=== PATIENT | male | born 1975 | race African-American/Black ===

== ENCOUNTER 2019-04-06 14:04 | Emergency (ER) | payer SELFPAY ==
[2019-04-06] MEDS ORDERED: Ketorolac Tromethamine 30 MG/ML VIAL ONE (14:23)
[2019-04-06] MEDS ORDERED: HYDROcodone/Acetaminophen 5/325 mg Tablet ONE (14:23)
--- NOTE | 2019-04-06 14:42 | RAD ---
EXAM: XR Hand Rt 3 View STANDARD PROVIDED CLINICAL HISTORY: Pain FINDINGS: There is no evidence for fracture or other acute osseous abnormality. Alignment appears anatomic. Marion nt spaces appear preserved. IMPRESSION: No evidence for an acute osseous abnormality. If there is persistent clinical concern, conservative m anagement and follow-up imaging advised. Acute
== END 2019-04-06 15:57 | disposition home or self-care (01) ==
LOC: ERS 14:04
DX: S60.221A Contusion of right hand, initial encounter (principal); W22.01XA Walked into wall, initial encounter
CPT/HCPCS: 96372; J1885

== ENCOUNTER 2019-04-07 12:44 | Inpatient (IN) | payer SELFPAY ==
[~2019-04-07 12:44] MED LIST: Dexamethasone 20 MG/5 ML VIAL ONE; Iopamidol-370 76% 500 ML 1 ML ONE; Lidocaine 1% PF 5 ML VIAL ONE; Ondansetron PF 4 MG/2 ML Vial ONE; PROPOFOL 200 MG/20 ML VIAL ONE; Succinylcholine Chloride 20 MG/ML 10 ml SYRINGE FS ONE
[2019-04-07] MEDS ORDERED: Piperacillin/Tazobactam 3.375 GM VIAL ONE (13:33)
[2019-04-07 14:12] LABS: #Lymphocytes 1.3 thou/uL (1.20-3.40); #Monocytes 1.1 thou/uL (0.11-0.59); #Neutrophils 8.3 thou/uL (1.40-6.50); %Eosinophils 0.2 % (0.0-10.0); %Lymphocytes 11.8 % (21.0-51.0); %Monocytes 10.1 % (0.0-10.0); %Neutrophils 77.9 % (42.0-75.0); Hemoglobin 11.5 g/dL (14.0-18.0); Mean Corpuscular HGB CONC 32.9 g/dL (32.0-36.0); Mean Corpuscular Hemoglobin 31.1 pg (27.0-31.0); Mean Corpuscular Volume 94.5 fL (78.0-98.0); Mean Platelet Volume 7.3 fL (7.4-10.4); Platelet Count 175 thou/uL (130-400); RBC Distribution Width 11.8 % (11.5-14.5); White Blood Cell (WBC) Count 10.7 thou/uL (4.8-10.8)
[2019-04-07 14:28] LABS: ALT (SGPT) 18 U/L (8-55); AST (SGOT) 18 U/L (5-34); Alkaline Phosphatase 66 U/L (40-110); Anion Gap 12 mmol/L (10-20); BUN (Urea Nitrogen) 8 mg/dL (8.9-20.6); Bilirubin, Total 0.5 mg/dL (0.2-1.2); Calc. Creatinine Clearance 0 mL/min (70-130); Calcium 7.9 mg/dL (7.8-10.44); Carbon Dioxide 21 mmol/L (22-29); Chloride 105 mmol/L (98-107); Estimated GFR-MDRD Greater than 90; Globulin 3.1 g/dL (2.4-3.5); Glucose 99 mg/dL (70-105); Potassium 4.1 mmol/L (3.5-5.1); Protein, Total 6.1 g/dL (6.0-8.3); Sodium 134 mmol/L (136-145)
--- NOTE | 2019-04-07 14:31 | CT ---
EXAM: CT right forearm, wrist and hand with IV contrast PROVIDED CLINICAL HISTORY: Pain and swelling status post injury COMPARISON: None FINDINGS: There is no evidence for fracture or other acute osseous abnormality. Alignment appears anatomic. Marion nt spaces appear preserved. There is noncircumscribed fluid density present within the subcutaneous adipose layer at the dorsum o f the hand. There is somewhat more focal fluid density present within the subcutaneous adipose layer at the palmar aspect of the hand centered volarly to the third digit flexor tendons. This measu res approximately 3.8 x 1.5 cm in greatest transverse dimensions and approximately 1.8 cm in craniocaudal dimension. This demonstrates mildly enhancing margins. IMPRESSION: 1. No evidence for fracture. 2. Nonspecific soft tissue fluid density that may reflect edema within the dorsum of the hand. 3. Focal fluid collection at the volar aspect of the hand as described. Correlate with concerns for a n infected fluid collection.
--- NOTE | 2019-04-07 14:41 | RAD ---
EXAM: XR Shoulder Rt 3 View STANDARD PROVIDED CLINICAL HISTORY: Pain FINDINGS: There is no evidence for fracture or other acute osseous abnormality. Alignment appears anatomic. Marion nt spaces appear preserved. IMPRESSION: No evidence for an acute osseous abnormality. If there is persistent clinical concern, conservative m anagement and follow-up imaging advised.
[2019-04-07] MEDS ORDERED: Morphine 4 MG/ML VIAL ONE (14:42)
[2019-04-07] MEDS ORDERED: Vancomycin 1.5 GRAM/300 ML BAG 1.5 GM in Premix Bag 1 BAG IVPB SCH (15:00)
[2019-04-07] MEDS ORDERED: Neomycin-Polymyxin 1 ML AMP ONE (15:39)
[2019-04-07] MEDS ORDERED: Fentanyl 100 MCG/2 ML VIAL ONE (15:42)
[2019-04-07] MEDS ORDERED: Ondansetron PF 4 MG/2 ML Vial IV PRN (16:56)
[2019-04-07] MEDS ORDERED: Acetaminophen/Codeine 30-300mg Tablet PO PRN ×2 (16:56)
[2019-04-07] MEDS ORDERED: Morphine 2 MG/ML SYRINGE SLOW IVP PRN (16:56)
[2019-04-07] MEDS ORDERED: Communication Order-Pharmacy FS SCH (17:00)
[2019-04-07] MEDS ORDERED: TETANUS AND DIPHTHERIA TOX/PF 0.5 ML DISP.SYRIN IM SCH (17:00)
[2019-04-07] MEDS ORDERED: Promethazine HCl 25 MG/ML VIAL SLOW IVP PRN (17:06)
[2019-04-07] MEDS ORDERED: Ketorolac Tromethamine 30 MG/ML VIAL IVP PRN (17:06)
[2019-04-07] MEDS ORDERED: Morphine Sulfate 2 MG/ML SYRINGE SLOW IVP PRN (17:06)
[2019-04-07] MEDS ORDERED: Meperidine HCl/PF 25 MG/ML VIAL SLOW IVP PRN (17:06)
[2019-04-07] MEDS ORDERED: HYDROmorphone 2 MG/ML VIAL SLOW IVP PRN (17:06)
[2019-04-07] MEDS ORDERED: Ondansetron HCl/PF 4 MG/2 ML Vial IVP PRN (17:06)
[2019-04-07] MEDS ORDERED: Promethazine HCl 25 MG/ML VIAL IM PRN (17:06)
[2019-04-07] MEDS ORDERED: PACU-Morphine 4MG/ML VIAL SLOW IVP PRN (17:06)
[2019-04-07] MEDS ORDERED: Piperacillin/Tazobactam 3.375 GM in Sodium Chloride 0.9% 100 ML IVPB SCH (18:00)
[2019-04-07] MEDS ORDERED: Ketorolac Tromethamine 30 MG/ML VIAL IVP SCH (18:00)
[2019-04-07 18:44] VITALS: BMI 23.6
[2019-04-07] MEDS: Ketorolac Tromethamine 30 MG/ML VIAL IVP SCH (19:56)
[2019-04-07] MEDS ORDERED: Vancomycin HCl 1 GM in Premix Bag 1 BAG IVPB SCH (21:00)
[2019-04-08] MEDS: Vancomycin HCl 1 GM in Premix Bag 1 BAG IVPB SCH ×2 (00:10→10:40)
[2019-04-08] MEDS: Ketorolac Tromethamine 30 MG/ML VIAL IVP SCH ×2 (01:50→08:53)
[2019-04-08] MEDS: Piperacillin/Tazobactam 3.375 GM in Sodium Chloride 0.9% 100 ML IVPB SCH ×2 (01:51→08:52)
[2019-04-08] MEDS ORDERED: Vancomycin HCl 1 GM in Premix Bag 1 BAG IVPB SCH (04:00)
[2019-04-08 04:16] VITALS: TEMP 98.9
[2019-04-08 07:29] VITALS: BP 119/73
[2019-04-08 07:32] LABS: Band 7 % (5-11); Lymphocytes 10 % (21-51); MDiff Complete? YES; Mean Corpuscular HGB CONC 32.4 g/dL (32.0-36.0); Mean Corpuscular Hemoglobin 30.8 pg (27.0-31.0); Mean Corpuscular Volume 95.1 fL (78.0-98.0); Mean Platelet Volume 7.6 fL (7.4-10.4); Monocytes 5 % (0-10); Neutrophil 78 % (42-75); Platelet Count 194 thou/uL (130-400); RBC Distribution Width 11.8 % (11.5-14.5); Red Blood Cell (RBC) Count 3.58 mill/uL (4.70-6.10); White Blood Cell (WBC) Count 17.7 thou/uL (4.8-10.8)
--- NOTE | 2019-04-09 08:09 | OP ---
DATE OF PROCEDURE: 04/07/2019 PREOPERATIVE DIAGNOSIS: Right volar long finger abscess. POSTOPERATIVE DIAGNOSIS: Right volar long finger abscess. PROCEDURE PERFORMED: Incision and drainage of right long finger abscess. ANESTHESIA: General. TOURNIQUET TIME: 27 minutes at 250 mmHg. SPECIMEN: Swab sent for Gram stain, culture, and sensitivity. COMPLICATIONS: None. DRAINS: Iodoform gauze. OUTCOME: Satisfactory. INDICATIONS FOR PROCEDURE: The patient is a 44-year-old gentleman, who has had 2 traumatic events over the last week with a resulting hand that is now very swollen, and he also reports some low-grade fevers. Workup has included a white cell count as well as inflammatory markers that are mildly elevated. A CT scan of the hand does show a loculated fluid collection just distal to the metacarpophalangeal joint in the subcutaneous tissue, not involving the flexor sheath. After review of the CT and discussion with the patient, we have decided to proceed with incision and drainage. Informed consent has been obtained. I believe all questions have been answered. DESCRIPTION OF PROCEDURE: The patient was brought to the operating room and a time-out performed followed by induction of general anesthesia. Next, a sterile prep and drape was performed of the right upper extremity. An incision was made obliquely proximal to the metacarpophalangeal flexor skin crease and then zigzagging across the skin crease along the proximal portion of the proximal phalanx. After the skin was sharply incised, dissection was carried down bluntly and an abscess cavity was entered. This abscess cavity was fully decompressed with the skin incision. A swab was sent for Gram stain, culture, and sensitivity. Next, the cavity was further inspected. There was found to be really no necrotic tissue. The flexor sheath was inspected and was found to be intact. There was absolutely no fluid within the flexor sheath and no distention of the flexor sheath as such. The structure was not entered. At this point, a liter of normal saline was irrigated through the former abscess cavity. Once done, an iodoform gauze was placed in the wound and then 3 interrupted sutures used just to reapproximate the skin edges. This was then followed by dressing that consisted of a Xeroform bulky gauze and Tuan wrap. The patient was then sent to the recovery room in stable condition. There were no complications. He tolerated the procedure well. It should be noted the hand was elevated and tourniquet inflated prior to the skin incision. The tourniquet was let down at the completion of dressing. There were no complications. He tolerated the procedure well. The tourniquet deflated . Job ID: [id number]
--- NOTE | 2019-04-10 00:33 | PQF ---
Reymundo Cooley ANTHONY, MD [id number] CLINICAL DOCUMENTATION CLARIFICATION FORM: POST DISCHARGE Addendum to original discharge summary date: ____ Late entry note date: __ DATE: 04/10/19 ATTN: Oscar Roberto Please exercise your independent, professional judgment in responding to the clarification form. Clinical indicators are provided on the bottom of this form for your review Please check appropriate box(s): Incision and Drainage only (No Debridement): Depth: [ ] Skin [ ] Subcutaneous [ ] Fascia [ ] Muscle [ ] Tendon [ ] Bone Approach [ ] Open [ ] Percutaneous [ ] External [ ] Other procedure diagnosis [ ] Unable to determine For continuity of documentation, please document condition throughout progress notes and discharge summary. Thank You. CLINICAL INDICATORS - SIGNS / SYMPTOMS / LABS Operative report p1 04/07 Dr Foster An incision was made obliquely proximal to the metacarpophalangeal flexor skin crease and then zigzagging across the skin crease along the proximal portion of the proximal phalanx. Operative report p1 04/07 Dr Foster After the skin was sharply incised, dissection was carried down bluntly and an abscess cavity was entered. This abscess cavity was fuly decompressed with the skin incision. Operative report p2 04/07 Dr Foster There was found to be really no necrotic tissue. The flexor sheath was inspected and was found to be intact. There was absolutely no fluid within the flexor sheath and no distention of the flexor sheath as such. The structure was not entered. RISK FACTORS Operative report p1 04/07 Right Volar long finger abscess Operative report p1 04/07 CT scan of the hand does show a loculated fluid collection just distal to the metacarpophalangeal joint in the subcutaneous tissue, not involving the flexor sheath. TREATMENTS: Operative report p1 04/07 Incision and Drainage of Right long finger abscess (This form is maintained as a part of the permanent medical record) 2014 [employer], [employer]. All Rights Reserved [email or web address] [not provided] MTDD
== END 2019-04-08 10:50 | disposition left against medical advice (07) | DRG 603 ==
LOC: ERS 12:44 → SDC/OP 16:15 → SURG B 17:02
PROVIDERS: ADMIT Orthopaedic Surgery; ATTEND Orthopaedic Surgery
PROC: 0H9FXZZ Drainage of Right Hand Skin, External Approach (ICD-10-PCS; principal; 2019-04-07)
DX: L02.511 Cutaneous abscess of right hand (principal)
CPT/HCPCS: 36415; 80053; 85025; 85652; 86140; 87040; 87070; 87077; 87186; 87205; J1100; J1885; J2001; J2270; J2405; J2543; J2704; J3010; J3370; J3490; Q9967

== ENCOUNTER 2019-06-03 19:49 | Inpatient (IN) | payer SELFPAY ==
[2019-06-03 20:27] LABS: Bilirubin Negative (Negative); Blood, Urine Negative (Negative); Clarity Turbid (Clear); Glucose, Urine (Dipstick) Normal (Negative); Leukocyte Negative Leu/uL (Negative); Nitrite Negative (Negative); Protein, Urine (Dipstick) 100 mg/dL (Neg-Trace); Squamous Epithelial 0-3 HPF (0-3)
[2019-06-03 20:31] LABS: Bacteria/HPF 3+ HPF (None Seen); RBC/HPF 0-3 HPF (0-3); Sperm/HPF 2+ HPF (None Seen)
[2019-06-03 20:41] LABS: #Lymphocytes 1.3 thou/uL (1.20-3.40); #Monocytes 0.5 thou/uL (0.11-0.59); #Neutrophils 2.8 thou/uL (1.40-6.50); %Basophils 0.4 % (0.0-1.0); %Eosinophils 0.8 % (0.0-10.0); %Lymphocytes 27.3 % (21.0-51.0); %Monocytes 11.2 % (0.0-10.0); %Neutrophils 60.3 % (42.0-75.0); Hemoglobin 9.3 g/dL (14.0-18.0); Mean Corpuscular HGB CONC 34.4 g/dL (32.0-36.0); Mean Corpuscular Volume 95.8 fL (78.0-98.0); Mean Platelet Volume 7.8 fL (7.4-10.4); Platelet Count 164 thou/uL (130-400); RBC Distribution Width 11.5 % (11.5-14.5); Red Blood Cell (RBC) Count 2.81 mill/uL (4.70-6.10); White Blood Cell (WBC) Count 4.6 thou/uL (4.8-10.8)
[2019-06-03 20:55] LABS: ALT (SGPT) 16 U/L (8-55); AST (SGOT) 23 U/L (5-34); Acetaminophen Less than 6.0 mcg/mL (10.0-30.0); Albumin 2.7 g/dL (3.5-5.0); Alcohol Less than 10 mg/dL (Less than 10); Alkaline Phosphatase 50 U/L (40-110); Anion Gap 14 mmol/L (10-20); BUN (Urea Nitrogen) 13 mg/dL (8.9-20.6); Bilirubin, Total 0.3 mg/dL (0.2-1.2); CK (CPK) 326 U/L (30-200); Calc. Creatinine Clearance 0 mL/min (70-130); Calcium 7.3 mg/dL (7.8-10.44); Carbon Dioxide 21 mmol/L (22-29); Chloride 109 mmol/L (98-107); Estimated GFR-MDRD 74; Globulin 1.9 g/dL (2.4-3.5); Glucose 114 mg/dL (70-105); Magnesium 1.8 mg/dL (1.6-2.6); Potassium 4.3 mmol/L (3.5-5.1); Protein, Total 4.6 g/dL (6.0-8.3); Salicylate Less than 8.0 mg/dL (15.0-30.0); Sodium 140 mmol/L (136-145)
--- NOTE | 2019-06-03 20:56 | RAD ---
Exam: Chest one view HISTORY:Altered mental status Comparison: 08/18/2012 FINDINGS: Cardiac silhouette: Normal Aorta: Unremarkable Pulmonary vessels: Normal Costophrenic angles: Clear LUNGS: No masses or consolidation. Pneumothorax: None Osseous abnormalities: None IMPRESSION: No acute cardiopulmonary process.
--- NOTE | 2019-06-03 21:31 | CT ---
Exam: Head CT without contrast HISTORY: Altered mental status. COMPARISON: 08/18/2012 FINDINGS: Hemorrhage: No intraparenchymal hemorrhage or extra-axial hematoma. Brain parenchyma: Cortical benjamin-white matter differentiation is preserved. No mass effect or midline shift. Basilar cisterns are patent. Ventricular system: Ventricles and sulci are patent and symmetric. Calvarium: Intact. Sinuses and mastoid air cells: Adequate aeration. IMPRESSION: No acute intracranial process.
[2019-06-03] MEDS ORDERED: cefTRIAXone\\ROCEPHIN 2 GM VIAL ONE (22:20)
[2019-06-03] MEDS ORDERED: Sodium Chloride 0.9% 100 ML ONE (22:20)
[2019-06-03 22:34] LABS: Actual Bicarbonate (HCO3a) 22.6 mEq/L (22-28); Analyzer IN Cardio ER; Base Excess (BEa) -3.3 mEq/L (-2.0 to +3.0); CO2 Tension 44.2 mmHg (35.0-45.0); Calcium, Ionized 1.12 mmol/L (1.12-1.30); Carboxyhemoglobin (COHb) 4.3 gm% (0.0-3.0); Hemoglobin (Hb) 10.8 g/dL (14.0-18.0); O2 Tension (PaO2) 68.1 mmHg (80.0-100.0); pH, Arterial 7.33 (7.35-7.45)
[2019-06-03 22:49] LABS: Puncture Site LRA
[2019-06-03 23:12] LABS: Amphetamine Not Detected (NotDetected); Barbiturates Screen Not Detected (NotDetected); Benzodiazepine Screen Not Detected (NotDetected); Cocaine Metabolite Screen Detected (NotDetected); Medtox Control Line Valid? VALID (VALID); Medtox Reader # READER 4; Methadone Not Detected (NotDetected); Methamphetamine Not Detected (NotDetected); Opiate Screen Not Detected (NotDetected); Oxycodone Screen Not Detected (NotDetected); Phencyclidine (PCP) Not Detected (NotDetected); THC/Cannabinoid Screen Detected (NotDetected); Tricyclic Screen Not Detected (NotDetected)
[2019-06-03] MEDS ORDERED: Acetaminophen 325 MG TAB PO PRN (23:16)
[2019-06-03] MEDS ORDERED: Ondansetron ODT 4 MG TAB PO PRN (23:16)
--- NOTE | 2019-06-03 23:56 | PDOC.FPRHP ---
- Allergies/Adverse Reactions Allergies Allergy/AdvReac Type Severity Reaction Status Date / Time No Known Allergies Allergy Unverified 04/07/19 14:53 - Home Medications Medication Instructions Recorded Confirmed Type No Known 04/07/19 04/07/19 History - History PMHx: PSHx: FHx: Social: - Vital signs BP: [] HR: [] RR: [] Tmax: [] Pox: []% on [] Wt: [] FMR H&P: Results - Labs Result Diagrams: 06/03/19 20:06/03/19 20 Lab results: WBC 4.6 thou/uL (4.8-10.8) L 06/03/19 20: Hgb 9.3 g/dL (14.0-18.0) L 06/03/19: Hct 26.9 % (42.0-52.0) L 06/03/19: MCV 95.8 fL (78.0-98.0) 06/03/19 Plt Count 164 thou/uL (130-400) 06/03/19: Neutrophils % 60.3 % (42.0-75.0) 06/03/19 20: ABG pH 7.33 (7.35-7.45) L 06/03/19 22:32 ABG pCO2 44.2 mmHg (35.0-45.0) 06/03/19 22:32 ABG pO2 68.1 mmHg (80.0-100.0) L 06/03/19 22:32 Sodium 140 mmol/L (136-145) 06/03/19: Potassium 4.3 mmol/L (3.5-5.1) 06/03/19: Chloride 109 mmol/L (98-107) H 06/03/19: Carbon Dioxide 21 mmol/L (22-29) L 06/03/19: BUN 13 mg/dL (8.9-20.6) 06/03/19: Creatinine 1.27 mg/dL (0.7-1.3) 06/03/19 20: Glucose 114 mg/dL (70-105) H 06/03/19 20: Lactic Acid 7.4 mmol/L (0.5-2.2) H* 06/03/19 20: Calcium 7.3 mg/dL (7.8-10.44) L 06/03/19 20:29 Total Bilirubin 0.3 mg/dL (0.2-1.2) 06/03/19 20:29 AST 23 U/L (5-34) 06/03/19 20: ALT 16 U/L (8-55) 06/03/19 20: Alkaline Phosphatase 50 U/L (40-110) 06/03/19 20: Creatine Kinase 326 U/L (30-200) H 06/03/19 20:29 Serum Total Protein 4.6 g/dL (6.0-8.3) L 06/03/19 20: Albumin 2.7 g/dL (3.5-5.0) L 06/03/19 20: Lipase 21 U/L (8-78) 06/03/19 20: Urine Ketones Negative mg/dL (Negative) 06/03/19 20: Urine Blood Negative (Negative) 06/03/19: Urine Nitrite Negative (Negative) 06/03/19 20:19 Ur Leukocyte Esterase Negative Alon/uL (Negative) 06/03/19 20: Urine RBC 0-3 HPF (0-3) 06/03/19 20: Urine WBC 4-6 HPF (0-3) A 06/03/19 20:19 Ur Squamous Epith Cells 0-3 HPF (0-3) 06/03/19 20:19 Urine Bacteria 3+ HPF (None Seen) A 06/03/19 20:19 FMR H&P: A/P - Problem List (1) Altered mental status Current Visit: Yes Status: Acute Code(s): R41.82 - ALTERED MENTAL STATUS, UNSPECIFIED (2) Lactic acid acidosis Current Visit: Yes Status: Acute Code(s): E87.2 - ACIDOSIS (3) Hypotension due to drugs Current Visit: Yes Status: Acute (4) Cocaine abuse Current Visit: Yes Status: Acute Code(s): F14.10 - COCAINE ABUSE, UNCOMPLICATED (5) Polysubstance (excluding opioids) dependence Current Visit: Yes Status: Acute Code(s): F19.20 - OTHER PSYCHOACTIVE SUBSTANCE DEPENDENCE, UNCOMPLICATED FMR H&P: Upper Level - Plan Date/Time: 06/03/19 6327 PCP: CC HPI: Unobtainable from patient due to AMS. Police were called because patient was doing cartwheels in an observers yard. On arrival the patient was agitated and combative. Per police, observers noted that patient had been known to have used K2 yesterday. On arrival to Ed patient was hypotensive, resolved after fluid resuscitation. Patient can say his name with sternal rub, he is somnolent. Called patients father, states he will come visit tomorrow. PMH: father denies chronic conditions PSH: denied by father Meds: none known to father Allergies: NKDA Soc Hx: see hpi Fm hx: non-contributory REVIEW OF SYSTEMS: Unobtainable 2/2 AMS Vitals: BP: 104/77 (lowest in 70s over 40s), Pulse:97, Resp: 18, Temp: 98.1 O2 sat: 98 on RA PHYSICAL EXAMINATION: General: NAD, somnolent but arousable, poor hygiene, unkempt HEENT: normal sclera Neck: Supple. Full ROM. Heart/Cardiovascular System: RRR, Cap refill < 3 seconds, no rub, no murmur Lungs/Respiratory System: CTA-B, no resp distress Abdomen/Gastro-Intestinal System: no abdominal tenderness, normal bowel sounds Extremities: Warm extremities. No cyanosis or edema Neuro: No gross deficits appreciated Skin: No lesions, rashes, or ulcers A/P: # AMS 2/2 Polysubstance Abuse - UDS positive for cocaine, THC - K2 used yesterday per police report - Patient somnolent currently, benzos for agitation PRN - CT head no acute process - Check HIV, RPR, Hep panel, history of imprisonment per chart review - Arousable and states name, protecting airway, will admit to IMCU for monitoring, intubation not indicated at this time # Lactic Acidosis 2/2 cocaine abuse - Trend CK, Trop - Hypotension resolved after fluid resuscitation, cont fluids at 200ml/hr - Urine, Blood, Cx pending - Received rocephin in ED, will hold off on further abx for now Fluids: LR 200ml/hr Code: full PPx: lovenox, pepcid Dispo: inpt
[2019-06-04 00:44] LABS: Troponin I Less than 0.010 ng/mL (< 0.028)
[2019-06-04 00:50] LABS: Lactic Acid 0.8 mmol/L (0.5-2.2)
--- NOTE | 2019-06-04 02:07 | PDOC.BPN ---
- Brief Progress Note On re-check patient is awake AxOx3 States he uses cocaine every 2-3 days, states he only used k2 once Lactic acid 7.4-> 0.8 BP improved Will admit to medical
[2019-06-04 03:51] VITALS: BMI 25.0
[2019-06-04] MEDS: Lactated Ringer's 1,000 ML IV SCH ×2 (05:16→10:33)
[2019-06-04 05:55] LABS: Hemoglobin 10.7 g/dL (14.0-18.0); Mean Corpuscular HGB CONC 32.8 g/dL (32.0-36.0); Mean Corpuscular Hemoglobin 31.2 pg (27.0-31.0); Mean Corpuscular Volume 95.3 fL (78.0-98.0); Mean Platelet Volume 8.1 fL (7.4-10.4); Platelet Count 191 thou/uL (130-400); RBC Distribution Width 11.6 % (11.5-14.5); Red Blood Cell (RBC) Count 3.42 mill/uL (4.70-6.10); White Blood Cell (WBC) Count 11.6 thou/uL (4.8-10.8)
[2019-06-04 05:58] LABS: ALT (SGPT) 18 U/L (8-55); AST (SGOT) 34 U/L (5-34); Albumin 2.8 g/dL (3.5-5.0); Alkaline Phosphatase 56 U/L (40-110); Anion Gap 9 mmol/L (10-20); BUN (Urea Nitrogen) 10 mg/dL (8.9-20.6); Bilirubin, Total 0.5 mg/dL (0.2-1.2); CK (CPK) 1006 U/L (30-200); Calc. Creatinine Clearance 101 mL/min (70-130); Carbon Dioxide 24 mmol/L (22-29); Chloride 109 mmol/L (98-107); Estimated GFR-MDRD Greater than 90; Globulin 2.4 g/dL (2.4-3.5); Glucose 79 mg/dL (70-105); Potassium 4.2 mmol/L (3.5-5.1); Protein, Total 5.2 g/dL (6.0-8.3); Sodium 138 mmol/L (136-145)
[2019-06-04 06:09] LABS: Free T4 (Free Thyroxine) 0.77 ng/dL (0.70-1.48)
[2019-06-04 06:23] LABS: HBCM Index 0.05 S/CO (0-0.79); HBSAg Index 0.21 S/CO (0-0.99); Hep A IgM AB Non-Reactive (NonReactive); Hep A IgM S/CO 0.18 S/CO (0-0.79); Hep B Surf Ag Non-Reactive S/CO (NonReactive); Hep C IgG Ab Non-Reactive (NonReactive); Hep C Index 0.07 S/CO (0-0.79); Hepatitis B Core IgM Abs Non-Reactive (NonReactive)
[2019-06-04 06:25] LABS: Syphilis Antibody Index 1.36 S/CO (<1.00 Non-Reactive)
--- NOTE | 2019-06-04 06:54 | PDOC.FM ---
- Subjective Subjective: pt resting in bed, AOx4, tolerating PO/ambulating successfully - Objective Vital Signs & Weight: Vital Signs (12 hours) Temp Pulse Resp BP Pulse Ox 06/04/19 04:04 98 06/04/19 03:16 98.3 F 75 16 115/82 98 Weight Weight 72.603 kg I&O: 06/02/19 06/03/19 06/04/19 06:59 06:59 06:59 Intake Total 250 Balance 250 Result Diagrams: 06/04/19 04:38 06/04/19 04:38 Phys Exam - Physical Examination Constitutional: NAD Dx/Plan (1) Altered mental status Code(s): R41.82 - ALTERED MENTAL STATUS, UNSPECIFIED Status: Acute (2) Cocaine abuse Code(s): F14.10 - COCAINE ABUSE, UNCOMPLICATED Status: Acute (3) Lactic acid acidosis Code(s): E87.2 - ACIDOSIS Status: Acute - Plan Plan: AMS 2/2 Polysubstance Abuse - UDS positive for cocaine, THC - benzos for agitation PRN - CT head no acute process - HIV, RPR, Hep neg Lactic Acidosis 2/2 cocaine abuse, resolved - CK, Trop downtrended - Urine, Blood, Cx neg Code: full Dispo: dc Addendum - Attending - Attending Attestation Date/Time: 06/04/19 1140 I personally evaluated the patient and discussed the management with Dr. Barbosa I agree with the History, Examination, Assessment and Plan documented above with any addition or exceptions noted below. Patient alert OOB ambulating to room NAD states he relapsed and was freaking out on drugs yesterday. Patient states he is going to an outpatient rehab facility today. He is stable for dismissal at this time.
[2019-06-04 07:16] LABS: Syphilis Antibody INDETERMINATE (Nonreactive)
[2019-06-04 08:17] VITALS: TEMP 98.1
[2019-06-04] MEDS ORDERED: Famotidine 20 MG TAB PO SCH (09:00)
[2019-06-04] MEDS ORDERED: Enoxaparin Sodium 40 MG/0.4 ML SYRINGE SC SCH (09:00)
[2019-06-04 11:46] VITALS: BP 123/83
--- NOTE | 2019-06-05 23:02 | PQF ---
Reymundo Cooley Grady [id number] CLINICAL DOCUMENTATION CLARIFICATION FORM: POST DISCHARGE Addendum to original discharge summary date: ____ Late entry note date: __ DATE:06/05/2019 ATTN:Luis Alberto Snow MD Please exercise your independent, professional judgment in responding to the clarification form. Clinical indicators are provided on the bottom of this form for your review Please check appropriate box(s): kindly clarify the cocaine abuse [ ] Overdose of cocaine [ x] Cocaine abuse NOS [ ] Other diagnosis [ ] Unable to determine In addition, please specify: For continuity of documentation, please document condition throughout progress notes and discharge summary. Thank You. CLINICAL INDICATORS - SIGNS / SYMPTOMS / LABS AMS 2/2 polysubstance abuse-Documented in family medicine H&P on 06/03 by Russel Mathews UDS positive for cocaine , THC-K2 used yesterday per polic report -Documented in family medicine H&P on 06/03 by Russel Mathews Patient somnolent currently -Documented in family medicine H&P on 06/03 by Russel Mathews Lactic acidosis 2/2 cocaine abuse-Documented in family medicine H&P on 06/03 by Russel Mathews Trend CK, Trop, Hypotension resolved after fluid resuscitation -Documented in family medicine H&P on 06/03 by Russel Mathews States he uses cocaine every 2-3 days, states he only used k2 once-Documented in Brief PN on 06/04 by Russel Mathews RISKS: AMS 2/2 polysubstance abuse-Documented in family medicine H&P on 06/03 by Russel Mathews Lactic acidosis 2/2 cocaine abuse-Documented in family medicine H&P on 06/03 by Russel Mathews TREATMENT: Benzos for agitation PRN-Documented in family medicine H&P on 06/03 by Russel Mathews Cont fluids at 200 ml/hr-Documented in family medicine H&P on 06/03 by Russel Mathews [employer] (This form is maintained as a part of the permanent medical record) 2014 [employer], [employer]. All Rights Reserved [email or web address]
== END 2019-06-04 16:43 | disposition home or self-care (01) | DRG 897 ==
LOC: ERS 19:49 → ERHOLD 22:50 → T4-A 06-04 03:18
PROVIDERS: ADMIT Family Medicine; ATTEND Family Medicine
DX: F14.10 Cocaine abuse, uncomplicated (principal); E87.2 Acidosis; I95.2 Hypotension due to drugs; R40.2362 Coma scale, best motor response, obeys commands, at arrival to emergency department; R40.2142 Coma scale, eyes open, spontaneous, at arrival to emergency department; R40.2242 Coma scale, best verbal response, confused conversation, at arrival to emergency department
CPT/HCPCS: 36415; 51702; 70450; 71045; 80053; 80074; 80306; 80307; 81003; 81015; 82550; 82805; 83605; 83690; 83735; 84439; 84443; 84484; 85025; 85027; 86593; 86780; 87040; 87086; 93005; 96361; 96365; J0696; J3490

== ENCOUNTER 2019-12-10 20:19 | Emergency (ER) | payer SELFPAY ==
[2019-12-10] MEDS ORDERED: Ondansetron PF 4 MG/2 ML Vial ONE (20:33)
[2019-12-10 20:50] LABS: #Lymphocytes 1.8 thou/uL (1.20-3.40); #Monocytes 0.5 thou/uL (0.11-0.59); #Neutrophils 2.1 thou/uL (1.40-6.50); %Basophils 0.7 % (0.0-1.0); %Eosinophils 0.5 % (0.0-10.0); %Lymphocytes 40.9 % (21.0-51.0); %Monocytes 11.3 % (0.0-10.0); %Neutrophils 46.6 % (42.0-75.0); Hemoglobin 12.3 g/dL (14.0-18.0); Mean Corpuscular Hemoglobin 30.6 pg (27.0-31.0); Mean Corpuscular Volume 92.9 fL (78.0-98.0); Mean Platelet Volume 7.9 fL (7.4-10.4); Platelet Count 201 thou/uL (130-400); RBC Distribution Width 11.9 % (11.5-14.5); Red Blood Cell (RBC) Count 4.01 mill/uL (4.70-6.10); White Blood Cell (WBC) Count 4.4 thou/uL (4.8-10.8)
[2019-12-10 21:10] LABS: ALT (SGPT) 13 U/L (8-55); AST (SGOT) 25 U/L (5-34); Albumin 3.7 g/dL (3.5-5.0); Alkaline Phosphatase 77 U/L (40-110); Anion Gap 11 mmol/L (10-20); BUN (Urea Nitrogen) 18 mg/dL (8.9-20.6); Bilirubin, Total 0.5 mg/dL (0.2-1.2); Calc. Creatinine Clearance 0 mL/min (70-130); Calcium 8.4 mg/dL (7.8-10.44); Carbon Dioxide 27 mmol/L (22-29); Chloride 105 mmol/L (98-107); Estimated GFR-MDRD 66; Globulin 3.1 g/dL (2.4-3.5); Glucose 91 mg/dL (70-105); Potassium 3.9 mmol/L (3.5-5.1); Protein, Total 6.8 g/dL (6.0-8.3); Sodium 139 mmol/L (136-145)
[2019-12-10 21:47] LABS: Medtox Reader # READER 1; Phencyclidine (PCP) Not Detected (NotDetected); THC/Cannabinoid Screen Detected (NotDetected)
[2019-12-10 21:48] LABS: Amphetamine Not Detected (NotDetected); Barbiturates Screen Not Detected (NotDetected); Benzodiazepine Screen Not Detected (NotDetected); Cocaine Metabolite Screen Detected (NotDetected); Medtox Control Line Valid? VALID (VALID); Methadone Not Detected (NotDetected); Methamphetamine Detected (NotDetected); Opiate Screen Not Detected (NotDetected); Oxycodone Screen Not Detected (NotDetected); Tricyclic Screen Not Detected (NotDetected)
--- NOTE | 2019-12-15 13:07 | EKG ---
Test Reason : Blood Pressure : / mmHG Vent. Rate : 070 BPM Atrial Rate : 070 BPM P-R Int : 174 ms QRS Dur : 106 ms QT Int : 426 ms P-R-T Axes : -25 013 022 degrees QTc Int : 460 ms Normal sinus rhythm Incomplete right bundle branch block Borderline ECG Confirmed by PRASAD PUENTE ([id number]), news video editor MICHAEL GOMEZ ([id number]) on 12/15/2019 1:06:50 PM Referred By: Confirmed By:PRASAD PUENTE
== END 2019-12-10 21:55 ==
LOC: ERS 20:19 → EEVIPCON 20:19 → ERS 21:55
DX: F12.10 Cannabis abuse, uncomplicated (principal); E86.0 Dehydration
CPT/HCPCS: 36415; 80053; 80306; 85025; 93005; 94760; 96361; 96374; J2405